=== PATIENT | female | born 1980 | race Caucasian/White ===

== ENCOUNTER → 2016-10-12 | Outpatient (CLI) | payer OTHER | LOC: OD 08:05 | PROVIDERS: ATTEND Urology | DX: N20.0 Calculus of kidney (principal) | CPT/HCPCS: 74000 ==

== ENCOUNTER → 2017-10-21 | Outpatient (CLI) | payer OTHER ==
--- NOTE | 2017-10-21 10:43 | RADIOLOGY REPORT (SQ) ---
EXAM DESCRIPTION: KUB COMPLETED DATE/TIME: 10/21/2017 9:18 am REASON FOR STUDY: CALCULUS OF KIDNEY COMPARISON: 10/12/2016 NUMBER OF VIEWS: One view. TECHNIQUE: Supine radiographic image of the abdomen acquired. LIMITATIONS: None. FINDINGS: BOWEL GAS PATTERN: Normal bowel gas pattern. No dilated loops. CALCIFICATIONS: 3 mm calcified density overlying lower pole left kidney. No ureteral calculi. SOFT TISSUES: No gross mass or suggestion of organomegaly. HARDWARE: Clips right upper quadrant. BONES: No bone lesions or fracture. OTHER: No other significant finding. IMPRESSION: Small left renal calculus. No significant change. Reading location - IP/workstation name: [email or web address]
== END ==
LOC: OD 09:07
PROVIDERS: ATTEND Urology
DX: N20.0 Calculus of kidney (principal)
CPT/HCPCS: 74018